=== PATIENT | male | born 1950 | race Two or more races ===

== ENCOUNTER → 2016-12-25 | Day surgery (SDC) | payer OTHER ==
[~2016-12-25] MED LIST: FLOMAX0.4 M1 PO
--- NOTE | ~2016-12-25 | EKG ---
PATIENT: JUSTIN ALFARO UNIT #: [id number] Ventricular Rate: 70 BPM Atrial Rate: 70 BPM P-R Interval: 170 ms QRS Duration: 86 ms Q-T Interval: 402 ms QTC Calculation(Bezet): 434 ms P Culbertson: 67 degrees Calculated R Culbertson: -43 degrees Calculated T Culbertson: 20 degrees Diagnosis Line: Normal sinus rhythm Diagnosis Line: Left axis deviation Diagnosis Line: Abnormal ECG Diagnosis Line: No previous ECGs available Diagnosis Line: Confirmed by MEI URIAS MD ([id number]) on Diagnosis Line: 12/26/2016 4:25:08 PM INTERPRETING MD: ADONAY MADIOSN
--- NOTE | ~2016-12-25 | OR ---
Unit #: [id number] #: [id number] Patient: JUSTIN ALFARO [id number] [facility]. [place], [place] [address] [id number] O MR#: [id number] NAME: JUSTIN ALFARO ROOM: Date of Procedure: 12/25/2016 Admission Date: 12/25/2016 Surgeon: Wisam Dominique M.D. : 1950 Attending Physician: Wisam Dominique M.D. Primary Care Physician: Vicky Parrish M.D. OPERATIVE REPORT PREOPERATIVE DIAGNOSIS Prostatic calculi. POSTOPERATIVE DIAGNOSIS Prostatic calculi, extensive and large. PROCEDURES PERFORMED Cystoscopy, extensive mechanical manipulation of prostate stones, laser lithotripsy, limited fulguration of prostate, and 3-way catheter placement. ANESTHESIA General. INDICATIONS FOR PROCEDURE This 66-year-old man with gross hematuria and untreated prostatism has improved on alpha-sushila therapy since cystoscopic diagnosis of prostatic calculi. He presents for treatment of at least one obvious prostate stone obstructing the prostatic lumen. DESCRIPTION OF PROCEDURE The patient was given satisfactory general anesthesia and preoperative antibiotics. He was positioned in dorsal lithotomy and his genitalia prepped and draped. The 21-Jamaican rigid cystoscope was introduced with a 30-degree lens and video noting the prostatic calculi previously seen. I was able to initially manipulate some stone out from a pocket, but with extensive viewing, there were tremendous bilateral stone projections just proximal to the sphincter bilaterally mainly posterior, but some anterior to the right. The laser was used to unroof a large stone in the left and this facilitated manipulation and extraction of numerous smaller stones that were individually irrigated out and/or into the bladder. Further work was not possible with the flexible graspers and I placed a 24-Jamaican resectoscope and was able to manipulate some even very large stones out of their locations into the bladder. There were dozens of stones in each pocket that were then mechanically repositioned into the bladder. There was a very prolonged and extensive effort at this as they just seem to keep on coming. After several were removed, others would disgorge from these pockets. The stones were gathered in the bladder and as many were irrigated out as possible, but number of them were too large and they were reduced with the 550 nanometer laser fiber at settings of 20 repetitions and 1.0. They were quite hard. They were lasered small enough to pull out with the loop. An extensive irrigation effort was followed by use of a 3-mm rollerball at the edges of the manipulation of the stones from Unit #: [id number] #: [id number] Patient: JUSTIN ALFARO their pockets. There was still some limited oozing from the extensive and prolonged manipulation, but no visible bleeding points. There was no significant stony debris left in the bladder. I do anticipate him to pass an occasional stone from the prostate and will speak to him about a TUR of the prostate in the future as this condition is thought likely to recur. A 22-Jamaican 3-way catheter was placed with a catheter guide. It did require some irrigation and was placed on 3-way drip. The patient will be observed for discharge versus overnight stay. Dictated by... Artis Muller/ita TD: 12/26/2016 01:44 JOB #: [id number] CC: Faizan Leigh M.D. OPERATIVE REPORT Page 1 of 1 X Wisam Dominique MD X PROCEDURE OPERATIVE NOTE
== END | disposition home or self-care (01) ==
LOC: CSUR 07:30
DX: N42.0 Calculus of prostate (principal); Z87.442 Personal history of urinary calculi; Z88.0 Allergy status to penicillin; Z79.899 Other long term (current) drug therapy
CPT/HCPCS: 88300; 93005; J1956; J2250; J3010

== ENCOUNTER 2016-12-28 21:44 | Emergency (ER) | payer OTHER | END 2016-12-28 23:30 | disposition home or self-care (01) | LOC: CED 21:44 | DX: R33.9 Retention of urine, unspecified (principal); Z88.0 Allergy status to penicillin | CPT/HCPCS: 51702; 99284 ==

== ENCOUNTER → 2017-01-21 | Outpatient (CLI) | payer OTHER ==
--- NOTE | ~2017-01-21 | CT71 ---
[facility] A Service of [facility] RADIOLOGY TEXT RESULTS PATIENT: JUSTIN ALFARO LOCATION: [facility] : 52 UNIT #: [id number] AGE: [address]: Faizan Leigh MD SEX: M ORDER DR: [id number] [facility] [address] [facility]. [place], [place] [address] [id number] O MR#: [id number] Acc #: [id number] NAME: JUSTIN ALFARO : 1950 SEX: M STUDY DATE/TIME: 01/21/2017 14:34 UNIT: [facility] ROOM: STUDY DESCRIPTION: CT Head Wo Contrast Attending Physician: Faizan Leigh M.D. Referring Physician: Faizan Leigh M.D. Ordering Physician: Faizan Leigh M.D. Primary Care Physician: Vicky Parrish M.D. MEDICAL IMAGING REPORT This report is preliminary unless electronic signature is present EXAM CT of the head without contrast. INDICATION Headache in the back of the head for 3 months. Patient does have a history of a bump to the head about 3 months ago. He also reports dizziness and blurred vision for [address] images were obtained from vertex of the skull through the skull base. No intravenous contrast material was administered. This CT exam was performed with one or more of the following radiation dose reduction techniques: automatic exposure control, adjustment of mA and/or kV according to patient size, and iterative reconstruction. FINDINGS No acute intracranial hemorrhage is identified. Patient is noted diffuse cerebral atrophy with compensatory ventricular dilatation which I think is mildly advanced for the age of 66. I do not see any focal areas of decreased attenuation. There is no midline shift or mass effect. Visualized paranasal sinuses appear clear as are the mastoid air cells. No aggressive osseous abnormalities are seen. No calvarial fracture is noted. There are no focal soft tissue abnormalities. IMPRESSION No acute intracranial process identified. Specifically, there is no evidence of acute hemorrhage, mass lesion or acute infarct. The patient does have some mildly advanced atrophy for the age of 66. Dictated by... Skye Becerra M.D. [facility] A Service of [facility] RADIOLOGY TEXT RESULTS PATIENT: JUSTIN ALFARO LOCATION: [facility] : 52 UNIT #: [id number] AGE: [address]: Faizan Leigh MD SEX: M ORDER DR: THIS IS AN ELECTRONICALLY VERIFIED REPORT Skye Becerra M.D. at 01/25/2017 3:29 PM AFF/jcarlo TD: 01/21/2017 17:51 JOB #: [id number] MEDICAL IMAGING REPORT Page 1 of 1 COPY
== END | disposition home or self-care (01) ==
LOC: CCAT 14:01
DX: R51 Headache (principal); G31.9 Degenerative disease of nervous system, unspecified
CPT/HCPCS: 70450